=== PATIENT | male | born 2005 | race Caucasian/White ===

== ENCOUNTER 2025-05-21 19:35 | Emergency (ER) | payer OTHER ==
[~2025-05-21] VITALS: Ht 172.7 cm; Wt 63.5 kg
[2025-05-21] MEDS: LIDOCAINE 2% MDV 20 ML VIAL SC ONE (21:25)
[2025-05-21] MEDS: TETANUS/DIPHTH/ACEL. PERTUSSIS 0.5 ML SYR IM.IMMUN ONE (22:07)
[2025-05-21 22:34] VITALS: BP 128/82; TEMP 97.2; O2SAT 99
== END 2025-05-21 22:36 | disposition home or self-care (01) ==
LOC: M ED 19:35
DX: S51.812A Laceration without foreign body of left forearm, initial encounter (principal); W26.8XXA Contact with other sharp object(s), not elsewhere classified, initial encounter; F10.10 Alcohol abuse, uncomplicated; Y92.410 Unspecified street and highway as the place of occurrence of the external cause; Y93.89 Activity, other specified; Y99.9 Unspecified external cause status; Z23 Encounter for immunization